=== PATIENT | female | born 1995 | race Caucasian/White ===

== ENCOUNTER → 2022-01-28 | Outpatient (CLI) | payer BC | LOC: EDSTATUS 08:08 → GENOP 20:14 | DX: O47.03 False labor before 37 completed weeks of gestation, third trimester (principal); Z3A.33 33 weeks gestation of pregnancy | CPT/HCPCS: 81001; 82731 ==

== ENCOUNTER 2022-02-01 21:50 | Outpatient (CLI) | payer BC | END 2022-02-01 23:00 | disposition home or self-care (01) | LOC: GENOP 21:50 | DX: O99.891 Other specified diseases and conditions complicating pregnancy (principal); N89.8 Other specified noninflammatory disorders of vagina; Z3A.34 34 weeks gestation of pregnancy | CPT/HCPCS: 84112; G0463 ==

== ENCOUNTER 2022-02-02 18:08 | Outpatient (CLI) | payer BC ==
[2022-02-02 19:54] LABS: HEMOGLOBIN 13.2 gm/dl (12.3-15.3); RED BLOOD COUNT 4.7 M/UL (4.00-5.10); WHITE BLOOD COUNT 10.4 K/UL (4.5-11.0)
[2022-02-02 20:05] LABS: BUN/CREATININE RATIO 16 (0-10)
== END 2022-02-02 21:50 | disposition home or self-care (01) ==
LOC: GENOP 18:08
PROVIDERS: Obstetrics & Gynecology
DX: O10.913 Unspecified pre-existing hypertension complicating pregnancy, third trimester (principal); Z3A.34 34 weeks gestation of pregnancy
CPT/HCPCS: 80053; 82570; 83615; 84156; 84550; 85025; 96372; J0702

== ENCOUNTER 2022-02-23 17:09 | Inpatient (IN) | payer BC ==
[~2022-02-23] VITALS: Ht 162.6 cm; Wt 95.7 kg
[2022-02-23] MEDS ORDERED: TRANDATE 200 M200 MG PO ×2 (17:57→17:58)
[2022-02-23] MEDS ORDERED: LEVOTHYROXINE50 MCG PO (17:57)
[2022-02-23] MEDS ORDERED: PRENATAL VITAM1 EAC8 PO (17:58)
[2022-02-23 18:12] LABS: RED BLOOD COUNT 4.65 M/UL (4.00-5.10); WHITE BLOOD COUNT 9.6 K/UL (4.5-11.0)
[2022-02-23 21:53] LABS: BUN/CREATININE RATIO 16 (0-10)
[2022-02-24] MEDS ORDERED: COLACE100 MG PO (17:55)
[2022-02-24] MEDS ORDERED: IBUPROFEN600 MG PO (17:55)
[2022-02-25 07:14] LABS: HEMOGLOBIN 12.6 gm/dl (12.3-15.3)
== END 2022-02-26 16:23 | disposition home or self-care (01) | DRG 806 ==
LOC: GENOP 17:09 → OB 17:30
PROVIDERS: Internal Medicine Pulmonary Disease; Obstetrics & Gynecology; ADMIT Obstetrics & Gynecology
PROC: 10E0XZZ Delivery of Products of Conception, External Approach (ICD-10-PCS; principal; 2022-02-23)
PROC: 4A1HXCZ Monitoring of Products of Conception, Cardiac Rate, External Approach (ICD-10-PCS; 2022-02-23)
PROC: 10H073Z Insertion of Monitoring Electrode into Products of Conception, Via Natural or Artificial Opening (ICD-10-PCS; 2022-02-23)
PROC: 10H07YZ Insertion of Other Device into Products of Conception, Via Natural or Artificial Opening (ICD-10-PCS; 2022-02-23)
PROC: 3E0234Z Introduction of Serum, Toxoid and Vaccine into Muscle, Percutaneous Approach (ICD-10-PCS; 2022-02-24)
DX: O24.420 Gestational diabetes mellitus in childbirth, diet controlled (principal); O10.92 Unspecified pre-existing hypertension complicating childbirth; Z37.0 Single live birth; Z3A.37 37 weeks gestation of pregnancy; E28.2 Polycystic ovarian syndrome; O99.284 Endocrine, nutritional and metabolic diseases complicating childbirth; Z88.2 Allergy status to sulfonamides; Z82.49 Family history of ischemic heart disease and other diseases of the circulatory system; Z83.3 Family history of diabetes mellitus; Z23 Encounter for immunization
CPT/HCPCS: 36415; 80053; 81001; 82570; 82962; 84156; 84550; 85014; 85018; 85025; 90715; J2405; J2590